=== PATIENT | female | born 1945 | race Two or more races ===

== ENCOUNTER 2024-09-29 08:11 | Inpatient (IN) | payer OTHER ==
[~2024-09-29] VITALS: Ht 152.4 cm; Wt 59.0 kg
--- NOTE | 2024-09-29 08:26 | NUR ---
PACIENTE ALERTA Y ORITADO X3.PACIENTE REFIERE QUE TIENES UN MES CON EL POTACIO ELEVADO .S/V ESTABLE DENTRO DE TAYLOR CONDICION .PACIENTE EN ESPERA DE EVALUACION MEDICA.
[2024-09-29] MEDS ORDERED: GLIPIZIDE XL2.5 MG (08:29)
[2024-09-29] MEDS ORDERED: LEVOTHYROXINE100 MC1 (08:29)
[2024-09-29] MEDS ORDERED: IRBESARTAN150 MG (08:30)
[2024-09-29] MEDS ORDERED: HYDROCHLOROTHIA25 MG (08:30)
[2024-09-29] MEDS ORDERED: ATORVASTATIN CA10 MG (08:31)
[2024-09-29] MEDS ORDERED: VAZALORE81 MG (08:32)
[2024-09-29] MEDS ORDERED: SODIUM CHLORIDE 0.45 % 1,000 ML IV SCH ×2 (08:45→09:00)
[2024-09-29] MEDS ORDERED: AMLODIPINE BESYLATE 5 MG TABLET PO SCH ×2 (08:55→17:00)
[2024-09-29] MEDS ORDERED: CANDESARTAN CILEXETIL 16 MG TABLET PO SCH (09:00)
[2024-09-29] MEDS ORDERED: PANTOPRAZOLE SODIUM 40 MG/VIAL VIAL IV PUSH SCH (09:00)
[2024-09-29] MEDS ORDERED: CARVEDILOL 6.25 MG TABLET PO SCH (09:00)
[2024-09-29] MEDS ORDERED: RIVAROXABAN 10 MG TAB PO SCH (09:00)
[2024-09-29] MEDS ORDERED: hydrALAZINE HCL 20 MG VIAL IV PRN (09:00)
[2024-09-29] MEDS ORDERED: ASPIRIN 81 MG TABLET.EC PO SCH (09:02)
[2024-09-29] MEDS ORDERED: LEVOTHYROXINE SODIUM 75 MCG TABLET PO SCH (09:02)
[2024-09-29] MEDS ORDERED: INSULIN LISPRO 1,000 UNIT/10 ML UNITS SUBCUTANEO PRN (09:15)
[2024-09-29] MEDS ORDERED: DEXTROSE 50 % IN WATER 0.5 G/ML DISP.SYRIN IV PRN (09:15)
[2024-09-29] MEDS ORDERED: ACETAMINOPHEN 500 MG GEL..CAP PO PRN (09:15)
[2024-09-29 09:49] LABS: HEMATOCRIT 33.5 % (36.0-45.00); HEMOGLOBIN 11.1 g/dL (12.0-15.00); MEAN CELL VOLUME 84.5 fL (80.00-100.00); MEAN CORPUSCULAR HEMOGLOBIN 27.9 pg (27.00-32.0); PLATELET COUNT 274 K/uL (150-450); RED BLOOD COUNT 3.97 M/uL (4.00-6.00); RED CELL DISTRIBUTION WIDTH 14.5 % (11.5-14.5)
[2024-09-29 11:06] LABS: AST/SGOT 45 U/L (15-37); LDH 183 U/L (84-246)
[2024-09-29] MEDS ORDERED: ONDANSETRON HCL 2 MG/ML VIAL IV SCH (12:00)
[2024-09-29 16:57] VITALS: BP 156/75
[2024-09-29] MEDS ORDERED: ATORVASTATIN CALCIUM 20 MG TABLET PO SCH (17:00)
[2024-09-29] MEDS ORDERED: GABAPENTIN 300 MG CAPSULE PO SCH (21:00)
[2024-09-29] MEDS ORDERED: DOCUSATE SODIUM 100MG CAP PO SCH (21:00)
[2024-09-30 00:53] VITALS: BP 142/60; O2SAT 97
[2024-09-30 06:45] LABS: ERYTHROCYTE SEDIMENTATION RATE 25 mm/hr
[2024-09-30 07:00] LABS: ALBUMIN 3.2 gm/dL (3.4-5.0); ALKALINE PHOSPHATASE 103 U/L (50-136); ALT/SGPT 32 U/L (12-78); AMYLASE 75 U/L (25-115); ANION GAP 11 (10.0-20.0); AST/SGOT 35 U/L (15-37); BILIRUBIN TOTAL 0.54 mg/dL (0.3-1.2); BILIRUBIN,CONJUGATED 0.11 mg/dL (0.0-0.2); BILIRUBIN,UNCONJUGATED 0.43 mg/dL (0.0-0.6); BLOOD UREA NITROGEN 22 mg/dL (7-18); BUN CREA RATIO 23 (7.0-25.0); CALCIUM 10.5 mg/dL (8.5-10.1); CARBON DIOXIDE 26 mEq/L (21-32); CHLORIDE 108 mmol/L (98-107); CHOL HDL RATIO 3.2 (0-5.0); CHOLESTEROL 174 mg/dL (0-200); CREATININE SERUM 0.96 mg/dL (0.55-1.02); GFR 56.21; GLUCOSE FASTING 170 mg/dL (65-100); HDL 54 mg/dl (40-60); LDL 92 mg/dl (0-130); LIPASE 83 U/L (13-75); OSMOLALITY SERUM 289 MOSM/KG (275-295); PHOSPHOROUS 3.2 mg/dL (2.5-4.9); POTASSIUM 4.07 mEq/L (3.5-5.1); SODIUM 141 mmol/L (136-145); TOTAL PROTEIN 6.2 gm/dL (6.4-8.2); TRIGLYCERIDES 138 mg/dL (0-150); VLDL 27 (0-39)
[2024-09-30 07:01] LABS: INR 1.05; PARTIAL THROMBOPLASTIN TIME 26.5 SECONDS (22.0-34.0); PROTHROMBIN TIME 11.4 SECONDS (9.0-11.5)
[2024-09-30 08:05] LABS: C-REACTIVE PROTEIN < 0.29 MG/DL (0.00-0.29)
[2024-09-30 08:32] VITALS: BP 137/71; O2SAT 98
[2024-09-30 08:41] LABS: PH,URINE 6.5 (5.0-8.0); URINE APPEARANCE Clear; URINE BILIRRUBIN Negative (NEGATIVE); URINE BLOOD Negative; URINE COLOR Yellow; URINE GLUCOSE Negative (NEGATIVE); URINE KETONE Negative (NEGATIVE); URINE LEUKOCYTE Negative; URINE NITRATE Negative; URINE PROTEIN Negative (NEGATIVE); URINE UROBILINOGEN 0.2 E.U./dl
[2024-09-30 08:42] LABS: URINE EPITHELIAL CELLS 0.1 uL (0.0-38.8); URINE RBC 0.5 uL (0.0-20.8); URINE WBC 0.9 uL (0.0-23.2)
[2024-09-30 08:48] LABS: PLATELET ESTIMATE NORMAL (NORMAL)
[2024-09-30] MEDS ORDERED: LEVOTHYROXINE SODIUM 100 MCG TABLET PO SCH (09:00)
[2024-09-30] MEDS ORDERED: MAGNESIUM SULFATE IN WATER 50 ML IV SCH (12:00)
[2024-09-30 16:26] LABS: ALBUMIN 3.3 gm/dL (3.4-5.0); PHOSPHOROUS 3.6 mg/dL (2.5-4.9)
[2024-09-30 17:40] VITALS: BP 133/61
[2024-09-30 20:35] LABS: TOTAL IRON BINDING CAPACITY 347 ug/dl (250-450)
[2024-09-30 20:37] LABS: TSH 0.153 uIU/mL (0.358-3.74)
[2024-09-30] MEDS ORDERED: MELATONIN 5 MG TABLET PO SCH (21:00)
[2024-10-01 01:04] VITALS: BP 148/69
[2024-10-01] MEDS ORDERED: LEVOTHYROXINE SODIUM 100 MCG TABLET PO SCH (06:00)
[2024-10-01 07:03] LABS: ALBUMIN 3.1 gm/dL (3.4-5.0); BILIRUBIN TOTAL 0.42 mg/dL (0.3-1.2); CALCIUM 10.2 mg/dL (8.5-10.1); CREATININE SERUM 0.99 mg/dL (0.55-1.02); GFR 54.25; GLOBULINA 2.8 G/DL (2.4-3.5); POTASSIUM 4.16 mEq/L (3.5-5.1); TOTAL PROTEIN 5.9 gm/dL (6.4-8.2)
[2024-10-01 08:37] VITALS: BP 135/69; O2SAT 94
[2024-10-01 09:05] LABS: CA 125 9.8 U/mL (0.0-38.1)
[2024-10-01] MEDS ORDERED: AMLODIPINE BESYL5 MG PO (11:11)
[2024-10-01] MEDS ORDERED: CARVEDILOL6.25 MG PO (11:12)
[2024-10-01] MEDS ORDERED: LIPITOR20 MG PO (11:12)
[2024-10-01] MEDS ORDERED: ATACAND16 MG PO (11:12)
[2024-10-01] MEDS ORDERED: ST. JOSEPH ASPI81 M2 PO (11:14)
[2024-10-01] MEDS ORDERED: GABAPENTIN300 MG PO (11:14)
[2024-10-01] MEDS ORDERED: COLACE100 MG PO (11:15)
[2024-10-01] MEDS ORDERED: MELATONIN5 M2 PO (11:17)
[2024-10-01] MEDS ORDERED: LEVOTHYROXINE75 MCG PO (11:17)
[2024-10-01] MEDS ORDERED: PROTONIX40 MG PO (11:19)
[2024-10-01] MEDS ORDERED: PLAVIX75 MG PO (11:23)
[2024-10-01 13:05] LABS: VITAMIN D 1 25 49.9 pg/mL (24.8-81.5)
[2024-10-02] MEDS ORDERED: LEVOTHYROXINE SODIUM 75 MCG TABLET PO SCH (06:00)
== END 2024-10-01 13:49 | disposition home or self-care (01) | DRG 305 ==
LOC: ER 08:14 → SEC-K 09:23 → EDBD 09:23 → MEDI 09:23
PROVIDERS: Internal Medicine Endocrinology, Diabetes & Metabolism; ADMIT Internal Medicine; ATTEND Internal Medicine
PROC: 4A12X4Z Monitoring of Cardiac Electrical Activity, External Approach (ICD-10-PCS; principal; 2024-09-29)
PROC: BW21ZZZ Computerized Tomography (CT Scan) of Abdomen and Pelvis (ICD-10-PCS; 2024-09-29)
PROC: B246ZZZ Ultrasonography of Right and Left Heart (ICD-10-PCS; 2024-09-29)
PROC: BW4FZZZ Ultrasonography of Neck (ICD-10-PCS; 2024-09-30)
DX: I16.0 Hypertensive urgency (principal); E11.65 Type 2 diabetes mellitus with hyperglycemia; E78.00 Pure hypercholesterolemia, unspecified; R00.2 Palpitations; I10 Essential (primary) hypertension; E03.9 Hypothyroidism, unspecified; K80.20 Calculus of gallbladder without cholecystitis without obstruction; D64.9 Anemia, unspecified; I51.7 Cardiomegaly; E83.52 Hypercalcemia; Z79.4 Long term (current) use of insulin

== ENCOUNTER → 2024-11-25 10:39 | Outpatient (CLI) | payer OTHER ==
[~2024-11-25 10:39] MED LIST: AMLODIPINE BESYL5 MG PO; ATACAND16 MG PO; ATORVASTATIN CA10 MG; CARVEDILOL6.25 MG PO; COLACE100 MG PO; GABAPENTIN300 MG PO; GLIPIZIDE XL2.5 MG; HYDROCHLOROTHIA25 MG; IRBESARTAN150 MG; LEVOTHYROXINE100 MC1; LEVOTHYROXINE75 MCG PO; LIPITOR20 MG PO; MELATONIN5 M2 PO; PLAVIX75 MG PO; PROTONIX40 MG PO; ST. JOSEPH ASPI81 M2 PO; VAZALORE81 MG
[2024-11-25 11:47] LABS: EOS # 0.27 (0.04-0.54); EOS % 3.9 % (0.7-7.0); HEMATOCRIT 32.2 % (34.1-44.9); HEMOGLOBIN 10.1 g/dL (11.2-15.7); LYMPH # 1.53 (1.18-3.74); LYMPH % 22.2 % (19.3-53.1); MEAN CORPUSCULAR HEMOGLOBIN 26.9 pg (25.6-32.2); MONO # 0.35 (0.24-0.82); MONO % 5.1 % (4.7-12.5); NEUT # 4.65 (1.56-6.13); NEUT % 67.7 % (34.0-71.1); PLATELET COUNT 270 K/uL (163-369); RED BLOOD COUNT 3.76 M/uL (3.93-5.22)
[2024-11-25 11:54] LABS: ERYTHROCYTE SEDIMENTATION RATE 17 mm/hr (0-30)
[2024-11-25 12:10] LABS: INR 0.99; PARTIAL THROMBOPLASTIN TIME 25.2 SECONDS (22.0-34.0); PROTHROMBIN TIME 10.8 SECONDS (9.0-11.5)
[2024-11-25 12:24] LABS: PH,URINE 5.5 (5.0-8.0); URINE APPEARANCE Clear; URINE BILIRRUBIN Negative (NEGATIVE); URINE BLOOD Negative; URINE COLOR Yellow; URINE GLUCOSE Negative (NEGATIVE); URINE KETONE Trace (NEGATIVE); URINE LEUKOCYTE Negative; URINE NITRATE Negative; URINE PROTEIN Trace (NEGATIVE); URINE UROBILINOGEN 0.2 E.U./dl
[2024-11-25 12:27] LABS: URINE BACTERIA 88.1 uL (0.0-1933); URINE EPITHELIAL CELLS 5.5 uL (0.0-38.8); URINE RBC 2.2 uL (0.0-20.8); URINE WBC 3.6 uL (0.0-23.2)
[2024-11-25 12:52] LABS: ALBUMIN 3.8 gm/dL (3.4-5.0); BILIRUBIN TOTAL 0.43 mg/dL (0.3-1.2); CALCIUM 10.3 mg/dL (8.5-10.1); CHOL HDL RATIO 3.1 (0-5.0); GFR 53.62; GLOBULINA 3.4 G/DL (2.4-3.5); POTASSIUM 4.7 mEq/L (3.5-5.1); TOTAL PROTEIN 7.2 gm/dL (6.4-8.2)
[2024-11-25 13:00] LABS: TSH 6.34 uIU/mL (0.358-3.74)
== END | disposition home or self-care (01) ==
LOC: LAB 10:39
PROVIDERS: ATTEND Internal Medicine
DX: D64.9 Anemia, unspecified (principal); E11.8 Type 2 diabetes mellitus with unspecified complications; I48.91 Unspecified atrial fibrillation; N39.0 Urinary tract infection, site not specified; E03.9 Hypothyroidism, unspecified; M35.1 Other overlap syndromes; E11.9 Type 2 diabetes mellitus without complications; E55.9 Vitamin D deficiency, unspecified; Z12.11 Encounter for screening for malignant neoplasm of colon; E78.2 Mixed hyperlipidemia

== ENCOUNTER → 2024-12-01 14:09 | Outpatient (CLI) | payer OTHER ==
[2024-12-01 15:41] LABS: ob NEGATIVE (NEGATIVE)
== END | disposition home or self-care (01) ==
LOC: LAB 14:09
PROVIDERS: ATTEND Internal Medicine
DX: D64.9 Anemia, unspecified (principal); E11.8 Type 2 diabetes mellitus with unspecified complications; I48.91 Unspecified atrial fibrillation; N39.0 Urinary tract infection, site not specified; E03.9 Hypothyroidism, unspecified; M35.1 Other overlap syndromes; E11.9 Type 2 diabetes mellitus without complications; E55.9 Vitamin D deficiency, unspecified; Z12.11 Encounter for screening for malignant neoplasm of colon; E78.2 Mixed hyperlipidemia

== ENCOUNTER 2024-12-09 09:01 | Outpatient (CLI) | payer OTHER | END 2024-12-09 09:02 | disposition home or self-care (01) | LOC: NUCLEAR 09:01 | PROVIDERS: ATTEND Internal Medicine | DX: K81.1 Chronic cholecystitis (principal) | CPT/HCPCS: 78227; A9537 ==

== ENCOUNTER 2025-01-16 20:04 | Emergency (ER) | payer OTHER ==
[~2025-01-16] VITALS: Ht 152.4 cm; Wt 59.0 kg
[2025-01-16] MEDS ORDERED: 0.9 % SODIUM CHLORIDE 1,000 ML IV STA (22:05)
[2025-01-16 23:28] LABS: BASO % 0.8 % (0.1-1.2); EOS # 0.01 (0.04-0.54); EOS % 0.3 % (0.7-7.0); LYMPH # 1.09 (1.18-3.74); LYMPH % 29.5 % (19.3-53.1); MEAN PLATELET VOLUME 11.30 fl (9.4-12.4); MONO # 0.44 (0.24-0.82); MONO % 11.9 % (4.7-12.5); NEUT # 2.12 (1.56-6.13); NEUT % 57.2 % (34.0-71.1); RED CELL DISTRIBUTION WIDTH 14.0 % (11.6-14.4)
[2025-01-16 23:53] LABS: BUN CREA RATIO 15.0 (7.0-25.0); CREATININE SERUM 1.38 mg/dL (0.55-1.02); GLUCOSE FASTING 194.0 mg/dL (65-100); OSMOLALITY SERUM 288.0 MOSM/KG (275-295)
[2025-01-16 23:54] LABS: GFR 36.98
[2025-01-17 00:33] LABS: COVID-19 AG NEGATIVE (NEGATIVE)
[2025-01-17] MEDS ORDERED: FAMOTIDINE/PF 20 MG in 0.9 % SODIUM CHLORIDE 8 ML IV PUSH STA (01:17)
[2025-01-17] MEDS ORDERED: INTESTINEX680 M1 PO (01:19)
[2025-01-17] MEDS ORDERED: PEPCID20 MG PO (01:19)
[2025-01-17] MEDS ORDERED: ONDANSETRON HCL 2 MG/ML VIAL IV ONE (01:30)
[2025-01-17] MEDS ORDERED: DIPHENOXYLATE HCL/ATROPINE 1 UDTAB TABLET PO ONE (01:30)
== END 2025-01-17 01:35 | disposition home or self-care (01) ==
LOC: ER 20:18
DX: K52.9 Noninfective gastroenteritis and colitis, unspecified (principal); Z20.822 Contact with and (suspected) exposure to COVID-19; Z88.8 Allergy status to other drugs, medicaments and biological substances
CPT/HCPCS: 36415; 96365; 99282; J2405; J3490